=== PATIENT | male | born 1965 | race Hispanic/Latino ===

== ENCOUNTER 2016-09-21 10:47 | Emergency (ER) | payer MEDICARE ==
[2016-09-21] MEDS ORDERED: ATIVAN IV ONE ×2 (11:21→12:51)
[2016-09-21 11:39] LABS: Basophils % (Auto) 0.5 % (0.0-1.8); Eosinophils % (Auto) 2.1 % (0.0-4.3); Hematocrit 45.6 % (35.5-45.6); Hemoglobin 14.8 gm/dl (11.8-15.2); Mean Corpuscular HGB Conc 32 % (32-34); Mean Corpuscular Hemoglobin 27 pg (28-32); Mean Corpuscular Volume 83 fl (84-94); Platelet Count 273 K/mm3 (140-440); Red Blood Count 5.51 M/mm3 (3.65-5.03); Red Cell Distribution Width 14.6 % (13.2-15.2); White Blood Count 8.7 K/mm3 (4.5-11.0)
--- NOTE | 2016-09-21 11:42 | Emergency Department Report ---
HPI - General Chief Complaint: Seizure Time Seen by Provider: 09/21/16 11:20 - HPI HPI: Room 5 The patient is a 51-year-old male presenting with a chief complaint of "pseudoseizure." The patient's mother is present with the patient and states he has a history of pseudoseizures. The patient states she felt the patient outside on the ground. EMS was cold reports the patient had a 20 second "seizure." All day today in order EMS reports patient had a third "seizure". Per EMS the patient was never postictal. The patient currently denies any complaints. Location: Mental state Duration: [see above] Quality: "Pseudo-" Severity: "Violent" Modifying factors: [see above] Context: [see above] Mode of transportation: [not driving] ED Past Medical Hx - Past Medical History Previous Medical History?: Yes Hx Hypertension: Yes Hx Seizures: Yes Additional medical history: Pseudoseizures - Surgical History Additional Surgical History: left leg - Family History Family history: no significant - Social History Smoking Status: Never Smoker Substance Use Type: None - Medications Home Medications: Home Medications Medication Instructions Recorded Confirmed Last Taken Type Metoprolol [Lopressor TAB] 25 mg PO QDAY 08/17/14 08/20/15 08/20/15 History Divalproex ER [Depakote ER] 1,000 mg PO BID 08/22/14 08/20/15 08/20/15 History ARIPiprazole [Aripiprazole] 5 mg PO 01/30/16 Unknown History Buspirone HCl [busPIRone] 15 mg PO 01/30/16 Unknown History Sertraline HCl [Zoloft] 50 mg PO UNK 01/30/16 01/30/16 Unknown History ED Review of Systems ROS: Stated complaint: SEIZURES Other details as noted in HPI Comment: All other systems reviewed and negative Constitutional: denies: chills, fever Eyes: denies: eye pain, eye discharge, vision change ENT: denies: ear pain, throat pain Respiratory: denies: cough, shortness of breath, wheezing Cardiovascular: denies: chest pain, palpitations Endocrine: no symptoms reported Gastrointestinal: denies: abdominal pain, nausea, diarrhea Genitourinary: denies: urgency, dysuria Musculoskeletal: denies: back pain, joint swelling, arthralgia Skin: denies: rash, lesions Neurological: denies: headache, weakness, paresthesias Psychiatric: other (pseudoseizures) Hematological/Lymphatic: denies: easy bleeding, easy bruising Physical Exam - Physical Exam Vital Signs: Vital Signs 09/21/16 11:03 Temperature 98.4 F Pulse Rate 89 Respiratory 16 Rate Blood Pressure 115/71 O2 Sat by Pulse 99 Oximetry Physical Exam: GENERAL: The patient is well-nourished sitting on stretcher not appearing to be in acute distress. [] HEENT: Normocephalic. Atraumatic. Extraocular motions are intact. Patient has moist mucous membranes. NECK: Supple. No meningitic signs are noted. Trachea midline CHEST/LUNGS: Clear to auscultation. There is no respiratory distress noted. HEART/CARDIOVASCULAR: Regular. There is no tachycardia. There is no gallop rub or murmur. ABDOMEN: Abdomen is soft, nontender. Patient has normal bowel sounds. There is no abdominal distention. SKIN: There is no rash. There is no edema. There is no diaphoresis. NEURO: The patient is awake, alert, and oriented. The patient is cooperative. The patient has no focal neurologic deficits. The patient has normal speech. Cranial nerves II through XII grossly intact, no drift MUSCULOSKELETAL: There is no evidence of acute injury. ED Course Vital Signs 09/21/16 11:03 Temperature 98.4 F Pulse Rate 89 Respiratory 16 Rate Blood Pressure 115/71 O2 Sat by Pulse 99 Oximetry - Reevaluation(s) Reevaluation #1: 09/21/16 13:34 Pseudoseizure witnessed by myself. Patient trembles but when given a sternal rub, the patient stops and makes eye contact and then goes back to pseudoseizure ED Medical Decision Making - Lab Data Result diagrams: 09/21/16 11:33 09/21/16 12:59 Laboratory Tests 09/21/16 09/21/16 09/21/16 11:33 11:33 11:37 WBC 8.7 RBC 5.51 H Hgb 14.8 Hct 45.6 MCV 83 L MCH 27 L MCHC 32 RDW 14.6 Plt Count 273 Lymph % (Auto) 22.3 [place] % (Auto) 6.1 Eos % (Auto) 2.1 Baso % (Auto) 0.5 Lymph # 1.9 [place] # 0.5 Eos # 0.2 Baso # 0.0 Seg Neutrophils % 69.0 Seg Neutrophils # 6.0 Sodium 136 L Potassium TNR Chloride 99.1 Carbon Dioxide TNR Anion Gap TNR BUN 13 Creatinine 1.2 Estimated GFR > 60 BUN/Creatinine Ratio 10.83 Glucose 120 H POC Glucose 111 H Calcium 9.0 Magnesium Total Bilirubin 0.5 AST TNR ALT TNR Alkaline Phosphatase TNR Total Protein 7.4 Albumin 3.6 L Albumin/Globulin Ratio 0.9 Valproic Acid 09/21/16 09/21/16 09/21/16 12:03 12:59 12:59 WBC RBC Hgb Hct MCV MCH MCHC RDW Plt Count Lymph % (Auto) [place] % (Auto) Eos % (Auto) Baso % (Auto) Lymph # [place] # Eos # Baso # Seg Neutrophils % Seg Neutrophils # Sodium 135 L Potassium 4.9 Chloride 99.8 Carbon Dioxide 18 L Anion Gap 22 BUN 12 Creatinine 1.1 Estimated GFR > 60 BUN/Creatinine Ratio 10.90 Glucose 99 POC Glucose Calcium 9.2 Magnesium 0.2 L* Total Bilirubin 0.4 AST 29 ALT 23 Alkaline Phosphatase 97 Total Protein 7.1 Albumin 3.5 L Albumin/Globulin Ratio 1.0 Valproic Acid < 2.8 L 09/21/16 14:12 WBC RBC Hgb Hct MCV MCH MCHC RDW Plt Count Lymph % (Auto) [place] % (Auto) Eos % (Auto) Baso % (Auto) Lymph # [place] # Eos # Baso # Seg Neutrophils % Seg Neutrophils # Sodium Potassium Chloride Carbon Dioxide Anion Gap BUN Creatinine Estimated GFR BUN/Creatinine Ratio Glucose POC Glucose Calcium Magnesium 2.4 H Total Bilirubin AST ALT Alkaline Phosphatase Total Protein Albumin Albumin/Globulin Ratio Valproic Acid - Differential Diagnosis seizures, pseudoseizure Critical care attestation.: If time is entered above; I have spent that time in minutes in the direct care of this critically ill patient, excluding procedure time. ED Disposition Clinical Impression: Pseudoseizures Disposition: DISCHARGED TO HOME OR SELFCARE Is pt being admited?: No Does the pt Need Aspirin: No Condition: Stable Additional Instructions: Return to the emergency department immediately should you develop worsening symptoms, fever, inability to tolerate food or liquid or any other concerns. Referrals: PRIMARY CARE, [Primary Care Provider] - 3-5 Days Time of Disposition: 14:49
[2016-09-21 12:29] LABS: Albumin 3.6 g/dL (3.9-5); Albumin/Globulin Ratio 0.9 %; BUN/Creatinine Ratio 10.83; Bilirubin,Total 0.5 mg/dL (0.1-1.2); Blood Urea Nitrogen 13 mg/dL (9-20); Glucose 120 mg/dL (75-100); Total Protein 7.4 g/dL (6.3-8.2)
[2016-09-21 12:30] LABS: Chloride 99.1 mmol/L (98-107); Sodium 136 mmol/L (137-145)
[2016-09-21 12:33] LABS: Anion Gap TNR mmol/L; Carbon Dioxide TNR mmol/L (22-30); Potassium TNR mmol/L (3.6-5.0)
[2016-09-21 12:34] LABS: Alanine Aminotransferase TNR units/L (7-56)
[2016-09-21 12:35] LABS: Alkaline Phosphatase TNR units/L (35-129)
[2016-09-21 13:50] LABS: Albumin 3.5 g/dL (3.9-5); Alkaline Phosphatase 97 units/L (35-129); Bilirubin,Total 0.4 mg/dL (0.1-1.2); Blood Urea Nitrogen 12 mg/dL (9-20); Calcium 9.2 mg/dL (8.4-10.2); Carbon Dioxide 18 mmol/L (22-30); Chloride 99.8 mmol/L (98-107); Glucose 99 mg/dL (75-100); Sodium 135 mmol/L (137-145); Total Protein 7.1 g/dL (6.3-8.2)
[2016-09-21 14:08] LABS: Alanine Aminotransferase 23 units/L (7-56); Anion Gap 22 mmol/L; Potassium 4.9 mmol/L (3.6-5.0)
[2016-09-21] MEDS ORDERED: DepaCON 500 MG in NACL 0.9% 100 ML IV ONE (14:35)
[2016-09-21 16:19] VITALS: BP 127/84
== END 2016-09-21 16:14 | disposition home or self-care (01) ==
LOC: ED 10:47
DX: R56.9 Unspecified convulsions (principal); I10 Essential (primary) hypertension; Z98.890 Other specified postprocedural states
CPT/HCPCS: 36415; 80053; 80164; 82962; 83735; 85025; 96365; 96375; 96376; 99284; J2060

== ENCOUNTER 2017-10-25 12:08 | Emergency (ER) | payer MEDICARE ==
[2017-10-25 12:25] VITALS: BP 119/83
[2017-10-25] MEDS ORDERED: KEPPRA PO ONE (12:39)
[2017-10-25] MEDS ORDERED: ATIVAN IV ONE (12:39)
--- NOTE | 2017-10-25 12:44 | Emergency Department Report ---
ED Seizure HPI - General Chief Complaint: Seizure Stated Complaint: SEIZURE Time Seen by Provider: 10/25/17 12:27 Source: EMS Mode of arrival: Stretcher Limitations: No Limitations - History of Present Illness Initial Comments: Patient presents to emergency department for seizure activity. Patient states he has a history of seizures and has not taken seizure medications in over 6 months which was also last time he had a seizure. States he has a department with his neurologist on the of this month. Patient denies having any headache, chest pain, shortness of breath, abdominal pain. MD Complaint: seizure -: Sudden Witnessed:: Yes Trauma: No Seizure History: known seizure disorder, other (not compliant with seizure medication) Place: other (restaurant) Possible Precipitating Event: none Associated Symptoms: denies other symptoms Treatments Prior to Arrival: none - Related Data Home Medications Medication Instructions Recorded Confirmed Last Taken Metoprolol [Lopressor TAB] 25 mg PO QDAY 08/17/14 08/20/15 09/21/16 Divalproex ER [Depakote ER] 1,000 mg PO BID 08/22/14 08/20/15 09/21/16 ARIPiprazole [Aripiprazole] 5 mg PO 01/30/16 09/21/16 Buspirone HCl [busPIRone] 15 mg PO 01/30/16 09/21/16 Sertraline HCl [Zoloft] 50 mg PO UNK 01/30/16 01/30/16 09/21/16 ALPRAZolam 09/21/16 09/21/16 Aspirin 09/21/16 09/21/16 Pravastatin 40 mg 09/21/16 09/21/16 Vitamin D3 2,000 units 09/21/16 09/21/16 Previous Rx's Medication Instructions Recorded Last Taken Type levETIRAcetam [Keppra] 500 mg PO BID #60 tablet 10/25/17 Unknown Rx Allergies Allergy/AdvReac Type Severity Reaction Status Date / Time No Known Allergies Allergy Verified 06/07/15 11:49 ED Review of Systems ROS: Stated complaint: SEIZURE Other details as noted in HPI Comment: All other systems reviewed and negative Constitutional: denies: chills, fever Eyes: denies: eye pain, eye discharge, vision change ENT: denies: ear pain, throat pain Respiratory: denies: cough, shortness of breath, wheezing Cardiovascular: denies: chest pain, palpitations Endocrine: no symptoms reported Gastrointestinal: denies: abdominal pain, nausea, diarrhea Genitourinary: denies: urgency, dysuria Musculoskeletal: denies: back pain, joint swelling, arthralgia Skin: denies: rash, lesions Neurological: denies: headache, weakness, paresthesias Psychiatric: denies: anxiety, depression Hematological/Lymphatic: denies: easy bleeding, easy bruising ED Past Medical Hx - Past Medical History Hx Hypertension: Yes Hx Congestive Heart Failure: No Hx Diabetes: No Hx Seizures: Yes Hx Asthma: No Hx COPD: No Additional medical history: Pseudoseizures - Surgical History Additional Surgical History: left leg - Social History Smoking Status: Never Smoker - Medications Home Medications: Home Medications Medication Instructions Recorded Confirmed Last Taken Type Metoprolol [Lopressor TAB] 25 mg PO QDAY 08/17/14 08/20/15 09/21/16 History Divalproex ER [Depakote ER] 1,000 mg PO BID 08/22/14 08/20/15 09/21/16 History ARIPiprazole [Aripiprazole] 5 mg PO 01/30/16 09/21/16 History Buspirone HCl [busPIRone] 15 mg PO 01/30/16 09/21/16 History Sertraline HCl [Zoloft] 50 mg PO UNK 01/30/16 01/30/16 09/21/16 History ALPRAZolam 09/21/16 09/21/16 History Aspirin 09/21/16 09/21/16 History Pravastatin 40 mg 09/21/16 09/21/16 History Vitamin D3 2,000 units 09/21/16 09/21/16 History levETIRAcetam [Keppra] 500 mg PO BID #60 tablet 10/25/17 Unknown Rx ED Physical Exam - General Limitations: No Limitations General appearance: alert, in no apparent distress - Head Head exam: Present: atraumatic, normocephalic - Eye Eye exam: Present: normal appearance - ENT ENT exam: Present: mucous membranes moist - Neck Neck exam: Present: normal inspection - Respiratory Respiratory exam: Present: normal lung sounds bilaterally. Absent: respiratory distress - Cardiovascular Cardiovascular Exam: Present: regular rate, normal rhythm. Absent: systolic murmur, diastolic murmur, rubs, gallop - GI/Abdominal GI/Abdominal exam: Present: soft, normal bowel sounds - Rectal Rectal exam: Present: deferred - Extremities Exam Extremities exam: Present: normal inspection - Back Exam Back exam: Present: normal inspection - Neurological Exam Neurological exam: Present: alert, oriented X3, CN II-XII intact, motor sensory deficit - Psychiatric Psychiatric exam: Present: normal affect, normal mood - Skin Skin exam: Present: warm, dry, intact, normal color. Absent: rash ED Course Vital Signs 10/25/17 10/25/17 12:20 12:26 Temperature 98.4 F Pulse Rate 94 H Respiratory 18 Rate Blood Pressure 119/83 O2 Sat by Pulse 99 Oximetry ED Medical Decision Making - Medical Decision Making Discussed plan of care with patient Patient received Ativan and Keppra in the ED Critical care attestation.: If time is entered above; I have spent that time in minutes in the direct care of this critically ill patient, excluding procedure time. ED Disposition Clinical Impression: Seizures Disposition: DC-01 TO HOME OR SELFCARE Is pt being admited?: No Does the pt Need Aspirin: No Condition: Stable Instructions: Recurrent Seizures Adult (ED) Additional Instructions: Please return if symptoms become worse Prescriptions: levETIRAcetam [Keppra] 500 mg PO BID #60 tablet Referrals: BROWN MCKEON JR, MD [Staff Physician] - 3-5 Days Time of Disposition: 12:44
== END 2017-10-25 13:25 | disposition home or self-care (01) ==
LOC: ED 12:08
DX: R56.9 Unspecified convulsions (principal); Z79.82 Long term (current) use of aspirin; I10 Essential (primary) hypertension
CPT/HCPCS: 96374; 99283; J2060

== ENCOUNTER 2018-12-07 13:30 | Emergency (ER) | payer MEDICARE ==
--- NOTE | 2018-12-07 14:04 | Emergency Department Report ---
Blank Doc - Documentation Documentation: pt presents to the ED with c/o a slip and fall over a cup yesterday c/o right ankle pain pain with ambulation never injured before PMHx seizures, HTN non smoker non drinker no drug use
[2018-12-07 14:05] VITALS: BP 139/101
--- NOTE | 2018-12-07 16:05 | Emergency Department Report ---
Blank Doc - Documentation Documentation: Patient left before me seeing the patient. I tried to call the patient back at the number listed but it seems like it is an incorrect number.
--- NOTE | 2018-12-07 16:46 | XRay Report ---
PROCEDURE: XR ANKLE 3+V RT TECHNIQUE: Right ankle radiographs, AP, lateral, and oblique views. HISTORY: fall, right ankle pain COMPARISONS: None . FINDINGS: There is lateral soft tissue swelling. No fracture or dislocation is seen. Ankle mortise and talar do me are intact. IMPRESSION: No acute fracture or dislocation is seen . This document is electronically signed by Jelena Green MD., Dec 07 2018 04:44:06 PM ET
== END 2018-12-07 15:58 ==
LOC: ED 13:30
DX: M25.572 Pain in left ankle and joints of left foot (principal); Z53.21 Procedure and treatment not carried out due to patient leaving prior to being seen by health care provider

== ENCOUNTER 2019-01-04 11:09 | Emergency (ER) | payer MEDICARE ==
[2019-01-04 11:34] LABS: Basophils # (Auto) 0.1 K/mm3 (0.0-0.1); Basophils % (Auto) 1.1 % (0.0-1.8); Eosinophils # (Auto) 0.1 K/mm3 (0.0-0.4); Eosinophils % (Auto) 1.2 % (0.0-4.3); Hematocrit 46.5 % (35.5-45.6); Hemoglobin 15.4 gm/dl (11.8-15.2); Lymphocytes # (Auto) 2.1 K/mm3 (1.2-5.4); Lymphocytes % (Auto) 23.5 % (13.4-35.0); Mean Corpuscular HGB Conc 33 % (32-34); Mean Corpuscular Volume 81 fl (84-94); Monocytes # (Auto) 0.7 K/mm3 (0.0-0.8); Monocytes % (Auto) 7.7 % (0.0-7.3); Platelet Count 247 K/mm3 (140-440); Red Blood Count 5.74 M/mm3 (3.65-5.03); Red Cell Distribution Width 15.6 % (13.2-15.2)
--- NOTE | 2019-01-04 11:42 | Emergency Department Report ---
ED Seizure HPI - General Chief Complaint: Seizure Stated Complaint: SEIZURE Time Seen by Provider: 01/04/19 11:31 Source: patient Mode of arrival: Stretcher Limitations: No Limitations - History of Present Illness Initial Comments: 53-year-old male who was at [employer] today when he purportedly had "3 seizures". He is not post ictal on my encounter. He has a history of seizures and "pseudoseizures". He states he is still taking his valproic acid. He states he was previously on Keppra but not for quite some time. He did not hurt himself today. He did not bite his tongue. He was not incontinent. He states this been some time since his previous last seizure. MD Complaint: possible seizure -: minutes(s) (or less) Description of Episode: other (uncertain) -: second(s) Witnessed:: Yes Trauma: No Seizure History: known seizure disorder (and pseudoseizures) Place: other Possible Precipitating Event: none Associated Symptoms: denies other symptoms Treatments Prior to Arrival: none - Related Data Home Medications Medication Instructions Recorded Confirmed Last Taken Metoprolol [Lopressor TAB] 25 mg PO QDAY 08/17/14 08/20/15 09/21/16 Divalproex ER [Depakote ER] 1,000 mg PO BID 08/22/14 08/20/15 09/21/16 ARIPiprazole [Aripiprazole] 5 mg PO 01/30/16 09/21/16 Buspirone HCl [busPIRone] 15 mg PO 01/30/16 09/21/16 Sertraline HCl [Zoloft] 50 mg PO UNK 01/30/16 01/30/16 09/21/16 ALPRAZolam 09/21/16 09/21/16 Aspirin 09/21/16 09/21/16 Pravastatin 40 mg 09/21/16 09/21/16 Vitamin D3 2,000 units 09/21/16 09/21/16 Previous Rx's Medication Instructions Recorded Last Taken Type levETIRAcetam [Keppra] 500 mg PO BID #60 tablet 10/25/17 Unknown Rx levETIRAcetam [Keppra TAB] 500 mg PO BID #60 tablet 01/04/19 Unknown Rx Allergies Allergy/AdvReac Type Severity Reaction Status Date / Time No Known Allergies Allergy Verified 12/07/18 13:32 ED Review of Systems ROS: Stated complaint: SEIZURE Other details as noted in HPI Constitutional: denies: chills, fever Eyes: denies: eye pain, eye discharge, vision change ENT: denies: ear pain, throat pain Respiratory: denies: cough, shortness of breath, wheezing Cardiovascular: denies: chest pain, palpitations Endocrine: no symptoms reported Gastrointestinal: denies: abdominal pain, nausea, diarrhea Genitourinary: denies: urgency, dysuria Musculoskeletal: denies: back pain, joint swelling, arthralgia Skin: denies: rash, lesions Neurological: as per HPI. denies: headache, weakness, paresthesias Psychiatric: denies: anxiety, depression Hematological/Lymphatic: denies: easy bleeding, easy bruising ED Past Medical Hx - Past Medical History Hx Hypertension: Yes Hx Congestive Heart Failure: No Hx Diabetes: No Hx Seizures: Yes Hx Asthma: No Hx COPD: No Additional medical history: Pseudoseizures - Surgical History Additional Surgical History: left leg - Social History Smoking Status: Never Smoker Substance Use Type: None - Medications Home Medications: Home Medications Medication Instructions Recorded Confirmed Last Taken Type Metoprolol [Lopressor TAB] 25 mg PO QDAY 08/17/14 08/20/15 09/21/16 History Divalproex ER [Depakote ER] 1,000 mg PO BID 08/22/14 08/20/15 09/21/16 History ARIPiprazole [Aripiprazole] 5 mg PO 01/30/16 09/21/16 History Buspirone HCl [busPIRone] 15 mg PO 01/30/16 09/21/16 History Sertraline HCl [Zoloft] 50 mg PO UNK 01/30/16 01/30/16 09/21/16 History ALPRAZolam 09/21/16 09/21/16 History Aspirin 09/21/16 09/21/16 History Pravastatin 40 mg 09/21/16 09/21/16 History Vitamin D3 2,000 units 09/21/16 09/21/16 History levETIRAcetam [Keppra] 500 mg PO BID #60 tablet 10/25/17 Unknown Rx levETIRAcetam [Keppra TAB] 500 mg PO BID #60 tablet 01/04/19 Unknown Rx ED Physical Exam - General Limitations: No Limitations General appearance: alert, in no apparent distress - Head Head exam: Present: atraumatic, normocephalic - Eye Eye exam: Present: normal appearance. Absent: scleral icterus - ENT ENT exam: Present: normal orophraynx, mucous membranes moist - Neck Neck exam: Present: normal inspection. Absent: tenderness, meningismus - Respiratory Respiratory exam: Present: normal lung sounds bilaterally. Absent: respiratory distress - Cardiovascular Cardiovascular Exam: Present: regular rate, normal rhythm. Absent: systolic murmur, diastolic murmur, rubs, gallop - GI/Abdominal GI/Abdominal exam: Present: soft, normal bowel sounds. Absent: tenderness, guarding, rebound, rigid - Rectal Rectal exam: Present: deferred - Extremities Exam Extremities exam: Present: normal inspection - Back Exam Back exam: Present: normal inspection - Neurological Exam Neurological exam: Present: alert, oriented X3, CN II-XII intact. Absent: motor sensory deficit - Psychiatric Psychiatric exam: Present: normal affect, normal mood - Skin Skin exam: Present: warm, dry, intact, normal color. Absent: rash ED Course Vital Signs 01/04/19 01/04/19 11:22 11:30 Temperature 98.6 F Pulse Rate 97 H Respiratory 18 18 Rate Blood Pressure 130/82 [Left] O2 Sat by Pulse 96 98 Oximetry - Reevaluation(s) Reevaluation #1: Patient started on oral Keppra. He did well in the emergency department. He had no further problem. This will be continued as an outpatient. He states his primary care physician but no neurologist. He will be referred. 01/04/19 14:17 ED Medical Decision Making - Lab Data Result diagrams: 01/04/19 11:20 01/04/19 11:20 Laboratory Results - last 24 hr 01/04/19 11:20 WBC 8.8 RBC 5.74 H Hgb 15.4 H Hct 46.5 H MCV 81 L MCH 27 L MCHC 33 RDW 15.6 H Plt Count 247 Lymph % (Auto) 23.5 [place] % (Auto) 7.7 H Eos % (Auto) 1.2 Baso % (Auto) 1.1 Lymph # 2.1 [place] # 0.7 Eos # 0.1 Baso # 0.1 Seg Neutrophils % 66.5 Seg Neutrophils # 5.9 Critical care attestation.: If time is entered above; I have spent that time in minutes in the direct care of this critically ill patient, excluding procedure time. ED Disposition Clinical Impression: Seizure, Seizure disorder Disposition: - TO HOME OR SELFCARE Is pt being admited?: No Does the pt Need Aspirin: No Condition: Stable Instructions: Recurrent Seizures Adult (ED) Additional Instructions: Do not drive. Follow-up with neurologist. Return acute change or problems. Prescriptions: levETIRAcetam [Keppra TAB] 500 mg PO BID #60 tablet Referrals: JOIE NEWMAN MD [Referring] - 3-5 Days Time of Disposition: 14:18
[2019-01-04 11:47] LABS: Calcium 9.1 mg/dL (8.4-10.2)
[2019-01-04 12:02] LABS: Alanine Aminotransferase 23 units/L (7-56); Albumin 3.8 g/dL (3.9-5)
[2019-01-04 12:05] LABS: Bilirubin,Direct < 0.2 mg/dL (0-0.2)
[2019-01-04 13:54] LABS: Bilirubin,Urine NEG (Negative); Blood,Urine NEG (Negative); Color,Urine Yellow (Yellow); Mucus,Urine 1+ /HPF; Protein,Urine <15 mg/dL mg/dL (Negative)
[2019-01-04 14:08] LABS: Amphetamine Screen,Urine PRESUMPTIVE NEGATIVE; Benzodiazepines Screen,Urine PRESUMPTIVE NEGATIVE; Cannabinoid Screen,Urine PRESUMPTIVE NEGATIVE; Cocaine Screen,Urine PRESUMPTIVE NEGATIVE; Methadone Screen,Urine PRESUMPTIVE NEGATIVE; Opiate Screen,Urine PRESUMPTIVE NEGATIVE
[2019-01-04] MEDS ORDERED: KEPPRA PO ONE (14:41)
[2019-01-04 15:29] VITALS: BP 115/69
== END 2019-01-04 15:28 | disposition home or self-care (01) ==
LOC: ED 11:09
DX: G40.909 Epilepsy, unspecified, not intractable, without status epilepticus (principal); I10 Essential (primary) hypertension; Z79.899 Other long term (current) drug therapy
CPT/HCPCS: 36415; 80048; 80076; 80307; 81001; 83735; 85025

== ENCOUNTER 2020-02-07 14:24 | Emergency (ER) | payer SELFPAY ==
[2020-02-07] MEDS ORDERED: levETIRAcetam 500 MG TAB PO ONE (19:35)
--- NOTE | 2020-02-07 19:43 | Emergency Department Report ---
ED Seizure HPI - General Chief Complaint: Seizure Stated Complaint: SEIUZRE Time Seen by Provider: 02/07/20 19:35 Source: patient, EMS Mode of arrival: Ambulatory Limitations: No Limitations - History of Present Illness Initial Comments: Mr. Christiansen is a 54-year-old male with history of pseudoseizures, hypertension who presents with reported 5 seizures today. He states that he does take seizure medicine. Patient admits to being stressed. He has had brief episode of chest pain. He is quite anxious. He denies suicidal homicidal ideation. Patient has been observed here in the emergency department for 5 hours without seizure activity. According to extensive work-up in 2013, neurologist felt that patient had nonepileptic spells. EEG MRI or normal at that time. MD Complaint: other (Reported 5 seizures at home) Trauma: No Seizure History: other (History of pseudoseizures) Place: home Associated Symptoms: chest pain - Related Data Home Medications Medication Instructions Recorded Confirmed Last Taken Metoprolol [Lopressor TAB] 25 mg PO QDAY 08/17/14 08/20/15 09/21/16 Divalproex ER [Depakote ER] 1,000 mg PO BID 08/22/14 08/20/15 09/21/16 ARIPiprazole [Aripiprazole] 5 mg PO 01/30/16 09/21/16 Buspirone HCl [busPIRone] 15 mg PO 01/30/16 09/21/16 Sertraline HCl [Zoloft] 50 mg PO UNK 01/30/16 01/30/16 09/21/16 ALPRAZolam 09/21/16 09/21/16 Aspirin 09/21/16 09/21/16 Pravastatin 40 mg 09/21/16 09/21/16 Vitamin D3 2,000 units 09/21/16 09/21/16 Previous Rx's Medication Instructions Recorded Last Taken Type levETIRAcetam [Keppra] 500 mg PO BID #60 tablet 10/25/17 Unknown Rx levETIRAcetam [Keppra TAB] 500 mg PO BID #60 tablet 01/04/19 Unknown Rx Allergies Allergy/AdvReac Type Severity Reaction Status Date / Time No Known Allergies Allergy Verified 12/07/18 13:32 ED Review of Systems ROS: Stated complaint: SEIUZRE Other details as noted in HPI Comment: All other systems reviewed and negative Constitutional: denies: fever, malaise Respiratory: denies: cough Cardiovascular: chest pain Gastrointestinal: denies: abdominal pain, nausea, vomiting Neurological: denies: headache, weakness, numbness, paresthesias Psychiatric: anxiety ED Past Medical Hx - Past Medical History Previous Medical History?: Yes Hx Hypertension: Yes Hx Congestive Heart Failure: No Hx Diabetes: No Hx Seizures: Yes Hx Asthma: No Hx COPD: No Additional medical history: Pseudoseizures - Surgical History Past Surgical History?: Yes Additional Surgical History: left leg - Social History Smoking Status: Never Smoker Substance Use Type: None - Medications Home Medications: Home Medications Medication Instructions Recorded Confirmed Last Taken Type Metoprolol [Lopressor TAB] 25 mg PO QDAY 08/17/14 08/20/15 09/21/16 History Divalproex ER [Depakote ER] 1,000 mg PO BID 08/22/14 08/20/15 09/21/16 History ARIPiprazole [Aripiprazole] 5 mg PO 01/30/16 09/21/16 History Buspirone HCl [busPIRone] 15 mg PO 01/30/16 09/21/16 History Sertraline HCl [Zoloft] 50 mg PO UNK 01/30/16 01/30/16 09/21/16 History ALPRAZolam 09/21/16 09/21/16 History Aspirin 09/21/16 09/21/16 History Pravastatin 40 mg 09/21/16 09/21/16 History Vitamin D3 2,000 units 09/21/16 09/21/16 History levETIRAcetam [Keppra] 500 mg PO BID #60 tablet 10/25/17 Unknown Rx levETIRAcetam [Keppra TAB] 500 mg PO BID #60 tablet 01/04/19 Unknown Rx ED Physical Exam - General Limitations: No Limitations General appearance: alert, in no apparent distress - Head Head exam: Present: atraumatic, normocephalic - Eye Eye exam: Present: normal appearance - ENT ENT exam: Present: mucous membranes moist - Neck Neck exam: Present: normal inspection, full ROM - Respiratory Respiratory exam: Present: normal lung sounds bilaterally. Absent: respiratory distress, wheezes, rales, rhonchi - Cardiovascular Cardiovascular Exam: Present: regular rate, normal rhythm, normal heart sounds. Absent: systolic murmur, diastolic murmur, rubs, gallop - GI/Abdominal GI/Abdominal exam: Present: soft, normal bowel sounds. Absent: distended, tenderness, guarding, rebound - Rectal Rectal exam: Present: deferred - Extremities Exam Extremities exam: Present: normal inspection - Neurological Exam Neurological exam: Present: alert, oriented X3 - Psychiatric Psychiatric exam: Present: normal affect, normal mood - Skin Skin exam: Present: warm, dry, intact, normal color. Absent: rash ED Course Vital Signs 02/07/20 02/07/20 14:34 19:21 Temperature 99 F 98.3 F Pulse Rate 100 H 96 H Respiratory 20 20 Rate Blood Pressure 130/77 163/90 O2 Sat by Pulse 96 97 Oximetry ED Medical Decision Making - EKG Data EKG shows normal: sinus rhythm, axis, intervals, QRS complexes, ST-T waves Rate: normal - EKG Data Interpretation: no acute changes - Medical Decision Making Mr. Christiansen presents with reported 5 seizures prior to arrival. Patient was observed in emergency department. He was seizure-free for 6 hours. He was not dazed or confused upon EMS arrival. Patient stated that he has had brief nonspecific chest pain. I do not suspect ACS. EKG screening was negative. He states that he no longer follows with a neurologist because it was too expensive. He received p.o. Keppra load emergency department. He was discharged home. Critical care attestation.: If time is entered above; I have spent that time in minutes in the direct care of this critically ill patient, excluding procedure time. ED Disposition Clinical Impression: Pseudoseizures Disposition: DC-01 TO HOME OR SELFCARE Is pt being admited?: No Does the pt Need Aspirin: No Condition: Stable Instructions: Recurrent Seizures Adult (ED) Referrals: JÚNIOR PÉREZ MD [Staff Physician] - 3-5 Days
[2020-02-07 19:55] VITALS: BP 132/85
== END 2020-02-07 19:46 | disposition home or self-care (01) ==
LOC: ED 14:24
DX: G40.89 Other seizures (principal); I10 Essential (primary) hypertension; Z98.890 Other specified postprocedural states; Z79.899 Other long term (current) drug therapy
CPT/HCPCS: 93005; 99284